=== PATIENT | male | born 2000 ===

== ENCOUNTER 2023-09-14 21:59 | Emergency (ER) | payer BC ==
[~2023-09-14] VITALS: Ht 182.9 cm; Wt 100.0 kg
[2023-09-14 22:17] VITALS: BP 155/70; PULSE 118; TEMP 98
== END 2023-09-14 23:32 | disposition left against medical advice (07) ==
LOC: COL.ER 21:59
DX: R20.0 Anesthesia of skin (principal); R20.2 Paresthesia of skin; R07.9 Chest pain, unspecified; R00.0 Tachycardia, unspecified